=== PATIENT | male | born 1945 | race Caucasian/White ===

== ENCOUNTER 2024-12-24 19:29 | Emergency (ER) | payer BC, MEDICARE ==
[2024-12-24] MEDS: Ondansetron 4 MG/2 ML SDV IVPUSH ONE (19:53)
[2024-12-24] MEDS: Sodium Chloride 0.9% 10 ML Syringe FLUSH PRN (19:53)
[2024-12-24] MEDS: Aspirin 81 MG Tab.Chew PO ONE (19:58)
[2024-12-24 19:59] LABS: BASOPHILS ABSOLUTE AUTO 0.03 K/uL (0.00-0.20); BASOPHILS PERCENT AUTO 0.4 % (0.0-2.0); EOSINOPHILS ABSOLUTE AUTO 0.16 K/uL (0.00-0.50); EOSINOPHILS PERCENT AUTO 1.9 % (0.0-5.0); HEMOGLOBIN 14.5 g/dL (13.1-16.8); IMMATURE GRAN ABSOLUTE AUTO 0.01 10^3/uL (0.00-0.04); IMMATURE GRAN PERCENT AUTO 0.1 % (0.0-0.4); LYMPHOCYTES ABSOLUTE AUTO 2.79 K/uL (0.50-3.50); LYMPHOCYTES PERCENT AUTO 33.7 % (10.0-50.0); MEAN CORPUSCULAR HEMOGLOBIN 27.3 pg (28.2-33.3); MEAN CORPUSCULAR HGB CONC 33.7 g/dL (31.7-36.0); MEAN CORPUSCULAR VOLUME 80.8 fL (84.0-98.0); MONOCYTES ABSOLUTE AUTO 0.64 K/uL (0.00-1.00); MONOCYTES PERCENT AUTO 7.7 % (2.0-14.0); NEUTROPHILS ABSOLUTE AUTO 4.64 K/uL (1.40-7.00); NEUTROPHILS PERCENT AUTO 56.2 % (45.0-80.0); PLATELET COUNT,PLT 163 K/uL (150-350); RED BLOOD CELL COUNT 5.32 M/uL (4.33-5.41); RED CELL DISTRIBUTION WIDTH 14.1 % (11.2-14.1); WHITE BLOOD CELL COUNT,WBC 8.3 K/uL (4.0-10.2)
[2024-12-24 20:25] LABS: ALANINE AMINOTRANSFERASE,ALT 46 U/L (12-78); ALKALINE PHOSPHATASE 90 IU/L (46-116); ASPARTATE AMNIOTRANSFERASE,AST 32 U/L (15-37); BILIRUBIN TOTAL 0.6 mg/dL (0.2-1.0); BLOOD UREA NITROGEN,BUN 17 mg/dL (7-18); CALCIUM 9.7 mg/dL (8.5-10.1); CHLORIDE,CL 104 mmol/L (98-107); CREATININE 1.16 mg/dL (0.51-1.17); GLUCOSE RANDOM 96 mg/dL (70-99); LIPASE 61 U/L (16-77); POTASSIUM,K 3.8 mmol/L (3.5-5.1); PRO B-TYPE NATRIUR PEPT,BNPPRO 71 pg/mL (0-125); SODIUM,NA 141 mmol/L (136-145)
[2024-12-24 20:26] LABS: ESTIMATED GFR 65 mL/min (>=60)
[2024-12-24 20:28] LABS: INR 1.2 (0.9-1.1); PROTHROMBIN TIME 12.1 SEC (9.0-11.1); PTT,PARTIAL THROMBOPLSTIN TIME 24.7 SEC (23.8-34.4)
[2024-12-24] MEDS: Take Home: Ondansetron 4 MG Tab.DIS, 5 Tab Pack PO ONE (22:15)
[2024-12-24 22:35] VITALS: BP 100/71; PULSE 67
== END 2024-12-24 22:20 | disposition home or self-care (01) ==
LOC: LL.ED 19:29
DX: K21.9 Gastro-esophageal reflux disease without esophagitis (principal); E78.00 Pure hypercholesterolemia, unspecified; Z79.899 Other long term (current) drug therapy; Z79.82 Long term (current) use of aspirin
CPT/HCPCS: 36415; 71045; 80053; 83605; 83690; 83880; 84484; 85025; 85610; 85730; 93005; 96374; 99285-25; A9270-GY; J2405; Q0162